=== PATIENT | male | born 1975 ===

== ENCOUNTER 2017-08-31 06:39 | Day surgery (SDC) | payer MEDICARE ==
[2017-08-28 13:32] VITALS: BMI 32.3
[2017-08-31 07:20] LABS: BASO # 0.01 K/mm3 (0.0-2.0); BASO % 0.1 % (0.0-3.0); EOS # 0.7 (0.0-0.7); EOS % 8.2 % (1.5-5.0); GRAN # 5.06 (1.4-6.5); GRAN % 61.4 % (50.0-68.0); HEMOGLOBIN 9.5 g/dL (14.0-18.0); LYMPH % 23.8 % (22.0-35.0); MEAN CORPUSCULAR HGB CONC 32.6 g/dl (31.0-37.0); MEAN PLATELET VOLUME 11.8 fl (7.0-11.0); MONO # 0.5 (0.1-0.6); MONO % 6.5 % (1.0-6.0); RBC 2.88 10^6/uL (3.5-6.1); RED CELL DISTRIBUTION WIDTH 14.9 % (11.5-14.5); WHITE BLOOD COUNT 8.3 10^3/ul (4.5-11.0)
[2017-08-31] MEDS ORDERED: Iohexol 350mgl/ml 50 ML ONE (07:30)
[2017-08-31] MEDS ORDERED: Lidocaine 2% Inj (20ml) ONE (07:30)
[2017-08-31 07:32] LABS: CALCIUM 8.6 mg/dL (8.4-10.5)
[2017-08-31 07:34] LABS: INR 0.89 (0.93-1.08); PROTHROMBIN TIME 10.2 SECONDS (9.4-12.5)
[2017-08-31] MEDS ORDERED: Iodixanol 320 MG/ML 200 ML BOTTLE IV ONE (07:42)
[2017-08-31] MEDS ORDERED: Midazolam 2 MG/2 ML VIAL ONE ×2 (07:54→08:13)
[2017-08-31] MEDS ORDERED: Sodium Chloride 0.9% 1,000 ML IV SCH (08:45)
[2017-08-31 09:14] VITALS: TEMP 97.7
[2017-08-31 10:07] VITALS: RESP 18
--- NOTE | 2017-08-31 11:08 | CARD ---
APPROVED REPORT Date of service: 08/31/2017 EKG Measurement Heart [id number] <Conclusion> Sinus rhythm with frequent premature ventricular complexes Nonspecific intraventricular conduction delay
[2017-08-31 11:48] VITALS: BP 101/83; PULSE 66; O2SAT 97
--- NOTE | 2017-08-31 11:58 | CARDCATH ---
PROCEDURE DATE: 08/31/2017 HISTORY: The patient is a 42-year-old male with a history of hypertension, hypercholesterolemia as well as end-stage renal disease due to polycystic kidney disease who presents with an abnormal stress test. Because of his ejection fraction of 48%, cardiac catheterization was recommended. PROCEDURE: Left heart catheterization with coronary arteriography and left ventriculogram. The right femoral artery was cannulated with a 6-Vietnamese sheath. There were no complications. I performed moderate sedation which included the presence of an independent trained observer that assisted in monitoring the patient's level of consciousness and physiologic status. After administration of Versed and fentanyl, my intra service time was 15 minutes. The findings on catheterization revealed a left ventricle that was mildly hypokinetic with an estimated ejection fraction of 45%-50%. There was no mitral regurgitation. His coronary anatomy revealed larger coronary vessels with a right dominant circulation. The RCA revealed diffuse atherosclerosis without critical lesions. The left main artery was within normal limits. The LAD and diagonal vessels revealed atherosclerosis without critical lesions. There was a 20%-30% stenoses in the midportion of the LAD. The circumflex artery was a large vessel without critical lesions. Angio-Seal was used to close the femoral artery site. The patient tolerated the procedure well. In summary, the procedure revealed mild LV hypokinesis consistent with a mild cardiomyopathy with an EF between 45%-50%. His coronary anatomy revealed diffuse atherosclerosis without critical lesions. Given these findings, there are no cardiac contraindications to his planned involvement in the renal transplant program. I have discussed with the patient's family about his need to control blood pressure and to continue a low fat diet with a cardiac risk reduction program. Sal Faulkner MD
--- NOTE | 2017-08-31 14:01 | CP.PCM.PN ---
Subjective - Date & Time of Evaluation Date of Evaluation: 08/31/17 Time of Evaluation: 14:00 - Subjective Subjective: pt seen and examined s/p cardiac cath today HD as MWF schedule Objective - Vital Signs/Intake and Output Vital Signs (last 24 hours): Temp Pulse Resp BP Pulse Ox 97.7 F 66 18 101/83 97 08/31/17 11:45 08/31/17 11:45 08/31/17 11:45 08/31/17 11:45 08/31/17 11:45 Intake and Output: 08/31/17 08/31/17 06:59 18:59 Intake Total 10 Balance 10 - Medications Medications: Current Medications Sodium Chloride (Sodium Chloride 0.9%) 1,000 mls @ 5 mls/hr IV .Q24H KIP - Labs Labs: 08/31/17 07:00 08/31/17 07:00 PT 10.2 SECONDS (9.4-12.5) 08/31/17 07:00 INR 0.89 (0.93-1.08) L 08/31/17 07:00 APTT 26.0 Seconds (25.1-36.5) 08/31/17 07:00
== END 2017-08-31 13:30 | disposition home or self-care (01) ==
LOC: CATH 06:39
PROVIDERS: ATTEND Internal Medicine Cardiovascular Disease
DX: I25.10 Atherosclerotic heart disease of native coronary artery without angina pectoris (principal); I12.0 Hypertensive chronic kidney disease with stage 5 chronic kidney disease or end stage renal disease; N18.6 End stage renal disease; E78.00 Pure hypercholesterolemia, unspecified; Q61.3 Polycystic kidney, unspecified; I42.0 Dilated cardiomyopathy
CPT/HCPCS: 36415; 80048; 80061; 85025; 85610; 85730; 86850; 86900; 93005; 93458; 99152; C1760; C1769; C2629; J2250; J3010; J7030; J7040; Q9966

== ENCOUNTER 2017-10-08 10:08 | Inpatient (IN) | payer MEDICARE, OTHER ==
[2017-10-08 10:15] VITALS: BMI 33.2
[2017-10-08 10:48] LABS: BASO # 0.02 K/mm3 (0.0-2.0); BASO % 0.1 % (0.0-3.0); EOS # 0.6 (0.0-0.7); EOS % 4.2 % (1.5-5.0); GRAN # 10.81 (1.4-6.5); GRAN % 77.5 % (50.0-68.0); HEMOGLOBIN 8.2 g/dL (14.0-18.0); LYMPH # 2.1 (1.2-3.4); LYMPH % 14.9 % (22.0-35.0); MEAN CELL VOLUME 103.7 fl (80.0-105.0); MEAN CORPUSCULAR HEMOGLOBIN 33.9 pg (25.0-35.0); MEAN CORPUSCULAR HGB CONC 32.7 g/dl (31.0-37.0); MEAN PLATELET VOLUME 11.9 fl (7.0-11.0); MONO # 0.5 (0.1-0.6); MONO % 3.3 % (1.0-6.0); RBC 2.42 10^6/uL (3.5-6.1); RED CELL DISTRIBUTION WIDTH 15.4 % (11.5-14.5)
--- NOTE | 2017-10-08 11:01 | ED PDOC ---
Arrival/HPI - General Chief Complaint: Shortness Of Breath Time Seen by Provider: 10/08/17 10:30 Historian: Patient, Spouse () - History of Present Illness Narrative History of Present Illness (Text): 10/08/17 10:26 A 42 year old male, whose past medical history includes hypertension (no longer takes medications for this), and currently on dialysis, who is accompanied by his and two sons, presents to the emergency department complaining of shortness of breath starting this morning. Patient reports yesterday was in normal state except felt fatigue, and last night went to bed at 22:00. Upon waking up, patient felt still felt some fatigue but no weakness. Later on while brushing his teeth, began experiencing shortness of breath and choking, pressure -like sensation to neck. He became concerned that he may be experiencing a heart attack, so he sat down and called 911. Upon EMS arrival, patient was given Nasal Cannula O2 and was relieved of symptoms. Patient denies any abdominal pain, chest pain, or any other complaints at this time. Also, patient mentions having experienced similar symptoms in the past after being disconnected from dialysis treatment, and states "a lot of fluids must have been taken out and caused to symptoms." PMD: Dr. Mendez Past Medical History - Provider Review Nursing Documentation Reviewed: Yes - Infectious Disease Hx of Infectious Diseases: None - Cardiac Hx Hypertension: Yes Hx Pacemaker: No - Pulmonary Hx Respiratory Disorders: No - Neurological Hx Paralysis: No - HEENT Hx HEENT Disorder: No - Renal Hx Dialysis: Yes Type of Dialysis Access: R FA AV shunt Date of Last Dialysis Treatment: 10/07/17 Hx Renal Failure: Yes (today) - Endocrine/Metabolic Hx Endocrine Disorders: No - Hematological/Oncological Hx Blood Transfusions: Yes (2014) Hx Blood Transfusion Reaction: No - Integumentary Hx Dermatological Disorder: No - Musculoskeletal/Rheumatological Hx Musculoskeletal Disorders: No - Gastrointestinal Hx Gastrointestinal Disorders: No - Genitourinary/Gynecological Hx Genitourinary Disorders: No - Psychiatric Hx Emotional Abuse: No Hx Physical Abuse: No Hx Substance Use: No - Surgical History Other/Comment: R FA AV shunt - Anesthesia Hx Anesthesia Reactions: No Hx Malignant Hyperthermia: No - Suicidal Assessment Feels Threatened In Home Enviroment: No Family/Social History - Physician Review Nursing Documentation Reviewed: Yes Family/Social History: No Known Family HX Smoking Status: Never Smoked Hx Alcohol Use: No Hx Substance Use: No Allergies/Home Meds Allergies/Adverse Reactions: Allergies No Known Allergies Allergy (Verified 10/08/17 12:59) Home Medications: Home Meds Medication Instructions Recorded Confirmed Rosuvastatin Calcium [Crestor] 5 mg PO HS 05/21/17 10/08/17 cloNIDine [Catapres] 0.1 mg PO TID 05/21/17 10/08/17 Aspirin [Ecotrin] 81 mg PO DAILY 08/28/17 10/08/17 Calcium Acetate [Phoslo] 3 tab PO ACTID 08/28/17 10/08/17 Cholecalciferol (Vitamin D3) 1 tab PO Q3XW 08/28/17 10/08/17 [D3-5000 90 mg-5000 Iu] Folic Acid 400 mg PO DAILY 08/28/17 10/08/17 Metoprolol Tartrate [Lopressor] 25 mg PO TID 08/28/17 10/08/17 tiZANidine [Zanaflex] 4 mg PO BID 08/28/17 10/08/17 Cinacalcet [Sensipar] 1 tab PO DAILY 10/08/17 10/08/17 Review of Systems - Physician Review All systems were reviewed & negative as marked: Yes - Review of Systems Respiratory: SOB (associated with choking, pressure-like sensation to neck.) Cardiovascular: absent: Chest Pain Gastrointestinal: absent: Abdominal Pain Physical Exam - Physical Exam Narrative Physical Exam (Text): Gen: VS reviewed, alert, well developed, well nourished, nontoxic, mild distress. ENT: normal pharynx. Eye: EOMI, PERRL. Neck: no JVD, supple, no adenopathy. CV: regular rate, regular rhythm, no rubs, no murmur, no gallops, S1, S2, pulses equal and strong. Pulm: no distress, clear to auscultation, no wheeze, no rhonchi, breath sounds equal, no rales. Abd: soft, nontender, no guarding, no rebound, no rigidity, normal bowel sounds. Ext: no edema. Skin: good color, no rash, no cyanosis, thrills to right arm dorsal aspect. Psych: responds appropriately to questions, normal affect. Neuro: oriented x 3, CN2-12 intact grossly, motor intact, sensation intact. Vital Signs Reviewed: Yes Vital Signs Temp Pulse Resp BP Pulse Ox 10/08/17 15:36 100.1 F H 111 H 18 129/72 10/08/17 15:20 97.5 F L 111 H 18 122/81 10/08/17 15:09 97.5 F L 103 H 18 122/81 98 10/08/17 14:47 98.4 F 78 18 145/91 H 95 10/08/17 13:33 101 H 18 125/86 100 10/08/17 10:22 97.6 F 97 H 18 121/59 L 98 10/08/17 10:20 18 99 Temperature: Afebrile Blood Pressure: Normal Pulse: Regular Respiratory Rate: Normal Appearance: Positive for: Well-Appearing Pain Distress: None Mental Status: Positive for: Alert and Oriented X 3 Medical Decision Making ED Course and Treatment: 10/08/17 10:30 Impression: 42 year old male shortness of breath. Physical exam shows thrills to right dorsal arm; no other acute findings on examination. Plan: -- EKG -- Chest X-ray -- Labs -- Reassess and disposition Progress Notes: 10/08/2017 10:21 EKG: Ordered, reviewed, and independently interpreted the EKG. Rate : 96 BPM Rhythm : NSR Interpretation : Normal QRS, normal access, no acute ST- and T- wave abnormalities. Comparison : No previous EKG for comparison. 10/08/2017 11:11 Chest X-ray IMPRESSION: No active disease. Dictator: Navin Gutiérrez MD 10/08/17 12:[address] mendez, patient to be admitted for symptomatic anemia, Hb reported to be near 10-[address] Mendez and patient. Patient also found to be hyperkalemic, received full dose of HD yesterday. Call has been placed to patient's derrick helper Dr. Barros. Patient also incidentally found to have an elevated WBC count, no s/s infection, it was agreed with Dr. Mendez to obtain cultures and empirically tx with iv abx. Patient remained stable throughtout ED course. 10/08/17 12:38 10/08/17 12:[address] bar nephro, covering with dr. wheeler, will arrange for HD and will arrange for c onsultation 10/08/17 15:40 blood transfusion initiated, 15 min into tranfusion, patient's temperature spiked to 100.2 oral, tylenol ordered, patient does not experience any other symptoms such as chest pain, dyspnea, dizziness, nausea, abd pain. patient looks and appears comfortable. - Lab Interpretations Lab Results: 10/08/17 10:30 10/08/17 10:30 Lab Results 10/08/17 10:30: Sodium 142, Potassium 6.1 H* D, Chloride 95 L, Carbon Dioxide 29 , Anion Gap 24 H, BUN 77 H, Creatinine 10.6 H* D, Est GFR ( Amer) 6, Est GFR (Non-Af Amer) 5, Random Glucose 133 H, Calcium 8.8, Phosphorus 3.1, Magnesium 2.5 H, Total Bilirubin 0.8, AST 14 L, ALT 10, Alkaline Phosphatase 62 , Troponin I < 0.01 D, Total Protein 7.1, Albumin 4.2, Globulin 2.9, Albumin/ Globulin Ratio 1.4 10/08/17 10:30: PT 12.2, INR 1.06, APTT 21.6 L, D-Dimer, Quantitative < 200 10/08/17 10:30: WBC 14.0 H D, RBC 2.42 L, Hgb 8.2 L, Hct 25.1 L, MCV 103.7, MCH 33.9, MCHC 32.7, RDW 15.4 H, Plt Count 214, MPV 11.9 H, Gran % 77.5 H, Lymph % ( Auto) 14.9 L, [place] % (Auto) 3.3, Eos % (Auto) 4.2, Baso % (Auto) 0.1, Gran # 10.81 H, Lymph # (Auto) 2.1, [place] # (Auto) 0.5, Eos # (Auto) 0.6, Baso # (Auto) 0.02 I have reviewed the lab results: Yes - RAD Interpretation Radiology Orders: 10/08/17 10:31 CXR [CHEST TWO VIEWS (PA/LAT)] [RAD] Stat - Medication Orders Current Medication Orders: Aspirin (Ecotrin) 81 mg PO DAILY KIP Atorvastatin Calcium (Lipitor) 10 mg PO HS KIP Calcium Acetate (Phoslo) 2,001 mg PO ACTID KIP Levalbuterol HCl (Xopenex) 0.63 mg IH [id number] [facility] Metoprolol Tartrate (Lopressor) 25 mg PO TID [facility] Pantoprazole Sodium (Protonix Ec Tab) 40 mg PO 0600,1600 [facility] Tizanidine HCl (Zanaflex) 4 mg PO BID [facility] Vitamin B Complex/Vit C/Folic Acid (Nephro-Vilma) 1 tab PO 0800 [facility] Discontinued Medications Darbepoetin Donny (Aranesp) 100 mcg IVP ONCE ONE Stop: 10/08/17 13:36 Dextrose (Dextrose 50% Inj) 50 ml IVP STAT STA Stop: 10/08/17 12:34 Last Admin: 10/08/17 13:09 Dose: 50 ml IVP Administration Document 10/08/17 13:09 GMD (Rec: 10/08/17 13:09 GMD [id number]) Charges for Administration # of IVP Administrations 1 Ceftriaxone Sodium (Rocephin 1 Gram Ivpb) 1 gm in 100 mls @ 100 mls/hr IVPB STAT STA PRN Reason: Protocol Stop: 10/08/17 13:31 Last Admin: 10/08/17 13:24 Dose: 100 mls/hr eMAR Start Stop Document 10/08/17 13:24 GMD (Rec: 10/08/17 13:25 GMD [id number]) Intravenous Solution Start Date 10/08/17 Start Time 13:24 End Date 10/08/17 End time 14:24 Total Infusion Time 60 Insulin Human Regular (Humulin R) 10 units IV STAT STA Stop: 10/08/17 12:34 Last Admin: 10/08/17 13:09 Dose: 10 unit eMAR Start Stop Document 10/08/17 13:09 GMD (Rec: 10/08/17 13:09 GMD [id number]) Intravenous Solution Start Date 10/08/17 Start Time 13:09 Non-Formulary Medication (Rosuvastatin Calcium [Crestor]) 5 mg PO HS [facility] Sodium Polystyrene Sulfonate (Kayexalate Susp) 15 gm PO STAT STA Stop: 10/08/17 12:33 Last Admin: 10/08/17 13:09 Dose: 15 gm Sodium Polystyrene Sulfonate (Kayexalate Susp) 15 gm PO STAT STA Stop: 10/08/17 13:10 Last Admin: 10/08/17 13:24 Dose: 15 gm - Scribe Statement The provider has reviewed the documentation as recorded by the Maryann Chandra Provider Scribe Attestation: All medical record entries made by the Trinaibdiane were at my direction and personally dictated by me. I have reviewed the chart and agree that the record accurately reflects my personal performance of the history, physical exam, medical decision making, and the department course for this patient. I have also personally directed, reviewed, and agree with the discharge instructions and disposition. Disposition/Present on Arrival - Present on Arrival Any Indicators Present on Arrival: No History of DVT/PE: No History of Uncontrolled Diabetes: No Urinary Catheter: No History of Decub. Ulcer: No History Surgical Site Infection Following: None - Disposition Have Diagnosis and Disposition been Completed?: Yes Diagnosis: Anemia, Hyperkalemia, Chronic renal failure Disposition: HOSPITALIZED Disposition Time: 12:38 Patient Plan: Admission Patient Problems: Current Active Problems Problem Status Onset Anemia Acute Hyperkalemia Acute Chronic renal failure Acute Condition: STABLE
[2017-10-08 11:07] LABS: ALBUMIN 4.2 g/dL (3.0-4.8); ALT/SGPT 10 U/L (7-56); AST/SGOT 14 U/L (17-59); BLOOD UREA NITROGEN 77 mg/dL (7-21); CALCIUM 8.8 mg/dL (8.4-10.5); GFR NON-AFRICAN AMERICAN 5
[2017-10-08 11:09] LABS: TROPONIN I < 0.01 ng/mL
--- NOTE | 2017-10-08 11:13 | RAD ---
Date of service: 10/08/2017 HISTORY: dyspnea COMPARISON: 02/14/2015 TECHNIQUE: Chest PA and lateral FINDINGS: LUNGS: No active pulmonary disease. PLEURA: No significant pleural effusion identified. No pneumothorax apparent. CARDIOVASCULAR: Normal. OSSEOUS STRUCTURES: No significant abnormalities. VISUALIZED UPPER ABDOMEN: Normal. OTHER FINDINGS: None. IMPRESSION: No active disease.
[2017-10-08 11:21] LABS: D DIMER < 200 ng/mlDDU (0-243); INR 1.06; PARTIAL THROMBOPLASTIN TIME 21.6 Seconds (25.1-36.5); PROTHROMBIN TIME 12.2 SECONDS (9.4-12.5)
[2017-10-08 11:57] LABS: ALB/GLOB RATIO 1.4 (1.1-1.8)
[2017-10-08] MEDS ORDERED: Sod Polystyrene Sulf 15 gm/60 ml Susp PO STA ×2 (12:32→13:09)
[2017-10-08] MEDS ORDERED: cefTRIAXone 1 gm 1 GM/100 ML BAG IVPB STA (12:32)
[2017-10-08] MEDS ORDERED: Insulin Regular 1 UNITS/0.01 ML ML IV STA (12:33)
[2017-10-08] MEDS ORDERED: Dextrose 50% SYRINGE Inj (50 ml) IVP STA ×2 (12:33→18:13)
[2017-10-08] MEDS ORDERED: Non Formulary Medication (Cholecalciferol (Vitamin D3) [Vitamin D3] 1 TAB) PO SCH (13:15)
[2017-10-08] MEDS ORDERED: Darbepoetin Alfa 100 mcg/ml Inj IVP ONE (13:35)
[2017-10-08] MEDS ORDERED: DiphenhydrAMINE 50 mg/ml Inj IVP STA (15:57)
[2017-10-08] MEDS: Levalbuterol 0.63 MG/3 ML Inhal Soln UD IH SCH ×2 (17:10→19:22)
[2017-10-08] MEDS: Pantoprazole 40 mg EC Tab PO SCH (17:10)
[2017-10-08] MEDS ORDERED: Pneumococcal 23-Valent Vaccine IM ONE (17:39)
[2017-10-08] MEDS ORDERED: Sodium Bicarbonate (8.4%) 50 Meq Syringe IVP ONE (18:13)
[2017-10-08] MEDS ORDERED: Insulin Regular 1 UNITS/0.01 ML ML IVP STA (18:13)
[2017-10-08] MEDS ORDERED: Albuterol 0.5% Inhal Sol (5 mg/ ml) 20 ml IH STA (18:14)
--- NOTE | 2017-10-08 19:08 | CARD ---
APPROVED REPORT Date of service: 10/08/2017 EKG Measurement Heart [id number] <Conclusion> Normal sinus rhythm Normal ECG
[2017-10-08 21:59] LABS: IRON 121 ug/dL (45-180)
[2017-10-08] MEDS ORDERED: Non Formulary Medication (Rosuvastatin Calcium [Crestor] 5 MG) PO SCH (22:00)
[2017-10-08 22:08] LABS: % IRON SATURATION 45 % (20-55); TOTAL IRON BINDING CAPACITY 267 ug/dL (261-462)
[2017-10-09] MEDS: Levalbuterol 0.63 MG/3 ML Inhal Soln UD IH SCH ×4 (01:06→20:34)
--- NOTE | 2017-10-09 03:23 | HP ---
Copied To: Andrea Rodriguez MD Attending MD: Andrea Rodriguez MD HISTORY OF PRESENT ILLNESS: The patient is a 42-year-old patient, came to the emergency room accompanied by the patient's family by [facility] complaining of sudden onset of shortness of breath at rest while the patient was brushing his teeth. When the EMS got to the patient, patient was given oxygen with relief of symptoms. REVIEW OF SYSTEMS: Patient's 13-system review was positive for sudden onset of shortness of breath at rest, also complained of fatigue and shortness of breath, and choking sensation.. The patient states that he was dialyzed yesterday. CODE STATUS: Full code. LIVING WILL ADVANCE DIRECTIVE: None. ALLERGIES: NONE. HEIGHT: 5 feet 6 inches. WEIGHT: 206. BODY MASS INDEX: 33. HOME MEDICATIONS: Vitamin D 50,000 units weekly, PhosLo 667 mg 3 tablets three times a day, Crestor 5 mg daily, Lopressor 25 mg three times a day, Sensipar 1 tablet daily, Zanaflex 4 mg twice a day, folic acid 1 mg daily, aspirin 81 mg daily. SOCIAL HISTORY: Denies substance abuse. Denies alcohol. Denies smoking. Denies drug use. Denies communicable disease. FAMILY HISTORY: Not applicable. PAST MEDICAL AND SURGICAL HISTORY: History end-stage renal disease, hemodialysis dependent 3 times a week via the upper extremity AV fistula, history of hypovitaminosis D, history of hyperlipidemia, history of bradycardia, history of nonobstructive coronary artery disease, history of decreased ejection fraction, history of anemia, history of secondary hyperparathyroidism, history of iron-deficiency, history of microscopic hematuria, history of polycystic kidney disease, history of abnormal stress test, history of nonischemic cardiomyopathy, history of questionable poor compliance, history of diverticulosis, history of left perinephric hematoma post renal biopsy, history of ultrasound-guided left renal biopsy, history of focal segmental glomerular sclerosis with moderate interstitial fibrosis, history of cardiac catheterization, history of left ventricular ejection fraction of 45% to 50% on cardiac catheterization, history of 20%-30% stenosis of the midportion of the left anterior descending artery, history of mild left ventricular hypokinesis with history of mild cardiomyopathy, history of pulmonary hypertension with right ventricular systolic pressure of 41 mmHg, history of mild tricuspid regurgitation, history of intraventricular conduction delay, history of hypertensive cardiovascular disease. Patient's past medical history is significant for history of uncontrolled hypertension, history of acute kidney injury, history of CT-guided left renal biopsy. Past medical history is significant for history of acute renal failure, history of packed red blood cell transfusion, history of nephrotic range proteinuria. PHYSICAL EXAMINATION: GENERAL: The patient seen in the emergency room in bed 2. The patient is seen lying in the bed, with patient's family at bedside. VITAL SIGNS: T-max is 98.1 to 98.8 to 99.1; heart rate 106, 112, 115; blood pressure 116/75, 121/74, 118/88; respiration 18, O2 sat 98% on room air. HEENT: Head normocephalic, atraumatic. HEENT examination shows pale conjunctivae. Anicteric sclerae. No oropharyngeal lesion. NECK: No rigidity. CHEST: Kyphosis. LUNGS: Shows positive occasional rhonchi in upper lung loyd. CARDIOVASCULAR: S1 and S2, regular rhythm. Questionable soft systolic murmur, left sternal border, right second intercostal space, left sternal border. ABDOMEN: Soft. Mild periumbilical and epigastric tenderness. No rebound tenderness. No hepatosplenomegaly. No costovertebral angle tenderness. GENITALIA: Male. RECTAL: Deferred. EXTREMITIES: Positive upper extremity AV fistula, positive thrill. Lower extremity shows no pitting edema, no calf numbness, no Homans' sign. NEUROLOGIC: The patient is alert, awake, oriented x3. Cranial nerves II through XII grossly intact. Gait examination is not tested. VASCULAR: Palpable pulses. PSYCHIATRIC: Negative. MUSCULOSKELETAL: Shows a body mass index of 33. DIAGNOSTICS: 10/08/2017, WBC 14, hemoglobin and hematocrit are 8.2 and 25.1. The patient's lab work in the office was reviewed. The patient's baseline hemoglobin is around high 10 and 11 g, platelet 214, granulocytes 76% segs. PT/PTT 12.2 and 21.6. D-dimer less than 200. Sodium 142, potassium 6.1, non hemolyzed, chloride 95, CO2 of 29, anion gap 24, BUN 77, creatinine 10.6, glucose 133, calcium 8.8, phosphorus 3.1, magnesium 2.5. LFTs are negative. EKG showed sinus rhythm, mild LVH. Chest x-ray shows clear lung loyd, no CHF noted. The patient was seen by the ER physician, Dr. IMPRESSION AND PLAN: 1. Sudden onset of shortness of breath, etiology undetermined. 2. Tachycardia. 3. Hypertension. 4. Acute drop in hemoglobin and hematocrit with symptomatic anemia with symptoms of shortness of breath. 5. Leukocytosis. 6. Granulocytosis. 7. Questionable systemic inflammatory response syndrome. 8. Non-hemolyzed hyperkalemia and end-stage renal disease, hemodialysis dependent. 9. Increased anion gap metabolic acidosis. 10. Hyperglycemia. 11. End-stage renal disease, hemodialysis dependent. 12. Acute onset of anemia, etiology undetermined. The patient was seen in the emergency room by the ER physician. The patient was treated for hyperkalemia with hyperkalemia treatment protocol. The patient was given Rocephin 1 g in the emergency room. The patient was given Aranesp 100 mcg. The patient was given regular insulin 10 units. The patient was given Kayexalate 30 g, and the patient is to be admitted to telemetry. At present, the patient will be admitted to telemetry with repeat labs. Nephrology, Cardiology and Gastroenterology consultation ordered. The patient has been ordered transfusion of PRBC. The patient was started on aspirin 81 mg daily. Patient was treated for hyperkalemia with Kayexalate, insulin, D50. Patient is started on Lipitor 10 mg daily, Lopressor 25 three times a day, Nephro-Vilma 1 tablet daily, PhosLo 2001 mg before meals three times a day, Protonix 40 mg p.o. daily.. The patient was started on Tylenol p.r.n. for fever, Xopenex nebulizer every 6 hours, Zanaflex 4 mg b.i.d. The patient is started on broad-spectrum IV antibiotics. The patient has been started on nebulizer treatment. The patient is ordered Tylenol for fever. The patient will be ordered GI and DVT prophylaxis. At present, the patient's condition, diagnosis, treatment plan, management plan, all discussed and explained to the patient and the patient's family, who was present at bedside, which they all acknowledged and understand. Patient will be ordered supplemental oxygen. The patient will be ordered out of bed. The patient will be ordered non-pharmacological DVT prophylaxis at present since the patient has sudden drop in hemoglobin of 2 to 3 g since the last offered blood work. The patient at present is awaiting for a bed. The patient has been ordered iron studies. B12, folate ordered. Stool occult blood ordered. At this time, the patient has been ordered all the diagnostic therapeutic intervention. The patient's further management will be dependent upon the patient's clinical condition, hemodynamic status and as per the patient response to therapeutic intervention, as per the patient's diagnostic test results and recommendation by all the physicians involved in the care of the patient. Dictated and electronically signed, not read. Andrea Rodriguez MD
[2017-10-09] MEDS: Pantoprazole 40 mg EC Tab PO SCH ×2 (05:34→16:50)
[2017-10-09 06:43] LABS: BASO # 0.02 K/mm3 (0.0-2.0); BASO % 0.2 % (0.0-3.0); EOS # 0.3 (0.0-0.7); EOS % 3.1 % (1.5-5.0); GRAN # 6.18 (1.4-6.5); GRAN % 67.2 % (50.0-68.0); HEMOGLOBIN 7.4 g/dL (14.0-18.0); LYMPH # 2.1 (1.2-3.4); LYMPH % 23.1 % (22.0-35.0); MEAN CELL VOLUME 98.2 fl (80.0-105.0); MEAN CORPUSCULAR HEMOGLOBIN 33.2 pg (25.0-35.0); MEAN CORPUSCULAR HGB CONC 33.8 g/dl (31.0-37.0); MEAN PLATELET VOLUME 12.1 fl (7.0-11.0); MONO # 0.6 (0.1-0.6); MONO % 6.4 % (1.0-6.0); RBC 2.23 10^6/uL (3.5-6.1); RED CELL DISTRIBUTION WIDTH 17.6 % (11.5-14.5); WHITE BLOOD COUNT 9.2 10^3/ul (4.5-11.0)
[2017-10-09 07:22] LABS: ALB/GLOB RATIO 1.4 (1.1-1.8); ALBUMIN 3.8 g/dL (3.0-4.8); BILIRUBIN,DIRECT 0.4 mg/dL (0.0-0.4); CALCIUM 8.8 mg/dL (8.4-10.5)
--- NOTE | 2017-10-09 10:18 | CON ---
Copied To: Sal Faulkner MD Attending MD: Sal Faulkner MD DATE: 10/09/2017 CARDIOLOGY CONSULTATION HISTORY: The patient is a 42-year-old male, who presents with shortness of breath. This patient's past medical history includes end-stage renal disease in which he has been treated with dialysis. The patient has documented cardiomyopathy with an EF of 45% with nonobstructive CAD documented by cardiac catheterization in 08/2017. In addition, the patient suffers from hypercholesterolemia and hypertension. He denies chest pain. SOCIAL HISTORY: The patient does not smoke. REVIEW OF SYSTEMS: Fourteen-point review of systems is reviewed in detail. Other than his shortness of breath, there are no other cardiac symptoms noted. No edema in the lower extremities. PHYSICAL EXAMINATION: VITAL SIGNS: Blood pressure is 148/95, heart rate is 100. NECK: Negative JVD. LUNGS: Without rales. HEART: Reveals S1, S2. EXTREMITIES: Without edema. LABORATORY DATA: His EKG is unremarkable. Hemoglobin is 7.4. Chemistries: BUN and creatinine are 96 and 13, potassium is 4. IMPRESSION: 1. Acute systolic congestive heart failure. 2. Mild cardiomyopathy. 3. End-stage renal disease. 4. Marked anemia. 5. Hypertension. 6. Hypercholesterolemia. PLAN: Given these findings, the patient is much improved after dialysis. I agree with possible packed red blood cells transfusion. There is no evidence for acute coronary syndrome. Sal Faulkner MD
--- NOTE | 2017-10-09 11:01 | CP.PCM.CON ---
History of Present Illness - History of Present Illness History of Present Illness: Nephrology Consultation Note: Assessment: Stable anemia of acute blood loss ? Upper GI bleed Hypertensive Chronic Kidney Disease (I12.0) End stage renal disease (N18.6) dependence on hemodialysis (Z99.2) (MWF) via AVF Anemia (D64.9), Hyperphosphatemia (E83.39), Secondary Hyperparathyroidism (E21.1 ), HTN (I12.0) hx of FSGS, obesity Plan: Will plan for HD today as ordered. Continue with Nephrovite 1 tab/day. PRBC as needed for anemia. on MICHAELLE with dialysis as last Hb 7.4. got aransep 100 mcg 10/08/17. check Ferritin as well. TSAT 45%. will add IV iron can hold phos binders pending GI work up last phos level 5.2 BP control with meds as ordered. Patient not on RAAS chasidy as with hyperkalemia Glycemic control, Dialysis consistent diet once stable from GI perspective Further work up/management as per primary team Dose meds/antibiotics (if needed) for ESRD status. Avoid fleets enema/magnesium based laxatives. GI, cardiology following continue with PPI Thanks for allowing me to participate in care of your patient. Will follow patient with you. Please call if any Qs. had d/w team Dr Rosendo Santoro Office: [phone] Chief Complaint; black stool HPI: Pt is a42 M with hx of ESRD on hemodialysis (MWF) via AVF , last dialysis Wed, chronic anemia, hyperphosphatemia, secondary hyperparathyroidism, hypertension , obesity presented with complaints of SOB and black stool for last 1 days. he was found to have hyperkalemia and acute on chronic anemia. admitted for further eval Renal consult requested for ESRD management. pt feels better today. today had normal color BM. denies blood in stool. makes urine. no SOB now HD since 2014, kidney biopsy showed FSGS and global sclerosis as well ROS: Cardiovascular: No chest pain. Pulmonary: No shortness of breath Gastrointestinal: denies abdominal pain No nausea. No vomiting. had black stool Genitourinary: No pain while urinating. Denies blood in urine. All other negative except as mentioned in HPI Physical Examination: seen on HD General Appearance: Comfortable, in no acute respiratory distress, co-operative . Vitals reviewed and noted as below Head; Atraumatic, normocephalic ENT: no ulcers no thrush. Tongue is midline. Oropharynx: no rash or ulcers. EYES: Pupils are equal, round and reactive to light accommodation. Eye muscles and extraocular movement intact. Sclera is anicteric. Neck; supple no lymphadenopathy, no thyromegaly or bruit Lungs: Normal respiratory rate/effort. Breath sounds bilateral equal and clear Heart: Increased rate. s1s2 normal. No rub or gallop. Extremities: no edema. No varicose veins Neurological: Patient is alert, awake and oriented to person, place and time. No focal deficit. Strength bilateral appropriate and equal Skin: Warm and dry. Normal turgor. No rash. Palpitation: Normal elasticity for age Abdomen: Abdomen is soft. Bowel sounds +. There is no abdominal tenderness, no guarding/rigidity or organomegaly Psych: normal insight and normal affect/mood MSK: no joint tenderness or swelling. Digits and nails normal, no deformity : kidney or bladder not palpable Access: AVF Labs/imaging reviewed. Past medical history, past surgical history, family history, social history, allergy reviewed and noted as below Family Hx: no hx of CKD. Non contributory Past Patient History - Infectious Disease Hx of Infectious Diseases: None - Past Social History Smoking Status: Never Smoked - CARDIAC Hx Cardiac Disorders: Yes (UNSTABLE ANGINA,CAD) Hx Congestive Heart Failure: Yes Hx Hypertension: Yes Hx Pacemaker: No - PULMONARY Hx Respiratory Disorders: No - NEUROLOGICAL Hx Neurological Disorder: No - HEENT Hx HEENT Problems: No - RENAL Hx Dialysis: Yes (MWF [facility]) Date of Last Dialysis Treatment: 10/07/17 Hx Renal Failure: Yes - ENDOCRINE/METABOLIC Hx Endocrine Disorders: No - HEMATOLOGICAL/ONCOLOGICAL Hx Blood Disorders: Yes Hx Anemia: Yes (BLOOD TRANSFUSION) - INTEGUMENTARY Hx Dermatological Problems: No - MUSCULOSKELETAL/RHEUMATOLOGICAL Hx Musculoskeletal Disorders: No Hx Falls: No - GASTROINTESTINAL Hx Gastrointestinal Disorders: Yes (BLACK STOOL 10-08-17) - GENITOURINARY/GYNECOLOGICAL Hx Genitourinary Disorders: No - PSYCHIATRIC Hx Emotional Abuse: No Hx Physical Abuse: No Hx Substance Use: No - SURGICAL HISTORY Hx Surgeries: Yes Other/Comment: R FA AV shunt - ANESTHESIA Hx Anesthesia Reactions: No Hx Malignant Hyperthermia: No Meds Allergies/Adverse Reactions: Allergies Allergy/AdvReac Type Severity Reaction Status Date / Time No Known Allergies Allergy Verified 10/08/17 12:59 - Medications Medications: Current Medications Acetaminophen (Tylenol 325mg Tab) 650 mg PO Q6 PRN PRN Reason: TEMP>=99.5F Acetaminophen (Tylenol 650 Mg Supp) 650 mg RC Q6H PRN PRN Reason: TEMP>=99.5F Acetaminophen (Tylenol 650 Mg Supp) 650 mg RC Q6H PRN PRN Reason: Headache Acetaminophen (Tylenol 325mg Tab) 650 mg PO Q6H PRN PRN Reason: Headache Acetaminophen (Tylenol 325mg Tab) 650 mg PO Q6H PRN PRN Reason: Pain, Mild (1-3) Atorvastatin Calcium (Lipitor) 10 mg PO HS [facility] Last Admin: 10/08/17 21:15 Dose: 10 mg Calcium Acetate (Phoslo) 2,001 mg PO ACTID [facility] Last Admin: 10/08/17 21:15 Dose: 2,001 mg Docusate Sodium (Colace) 100 mg PO TID [facility] Doxycycline Hyclate 100 mg/ (Sodium Chloride) 100 mls @ 100 mls/hr IVPB Q12 [facility] PRN Reason: Protocol Last Admin: 10/09/17 00:00 Dose: 100 mls/hr Ceftriaxone Sodium (Rocephin 1 Gram Ivpb) 1 gm in 100 mls @ 100 mls/hr IVPB DAILY [facility] PRN Reason: Protocol Levalbuterol HCl (Xopenex) 0.63 mg IH [id number] [facility] Last Admin: 10/09/17 07:09 Dose: 0.63 mg Metoprolol Tartrate (Lopressor) 25 mg PO TID [facility] Last Admin: 10/08/17 21:00 Dose: Not Given Ondansetron HCl (Zofran Inj) 4 mg IVP Q4H PRN PRN Reason: Nausea/Vomiting Pantoprazole Sodium (Protonix Ec Tab) 40 mg PO 0600,1600 [facility] Last Admin: 10/09/17 05:34 Dose: 40 mg Polyethylene Glycol (Miralax) 17 gm PO BID [facility] Tizanidine HCl (Zanaflex) 4 mg PO BID [facility] Last Admin: 10/08/17 21:15 Dose: 4 mg Vitamin B Complex/Vit C/Folic Acid (Nephro-Vilma) 1 tab PO 0800 [facility] Results - Vital Signs Recent Vital Signs: Last Vital Signs Temp 98.3 F 10/09/17 10:40 Pulse 73 10/09/17 10:40 Resp 18 10/09/17 10:40 BP 154/99 H 10/09/17 10:40 Pulse Ox 98 10/09/17 06:00 - Labs Result Diagrams: 10/09/17 05:30 10/09/17 05:30 Labs: Laboratory Results - last 24 hr 10/08/17 10/08/17 10/08/17 13:00 17:30 17:33 WBC RBC Hgb Hct MCV MCH MCHC RDW Plt Count MPV Gran % Lymph % (Auto) Lipscomb % (Auto) Eos % (Auto) Baso % (Auto) Gran # Lymph # (Auto) Lipscomb # (Auto) Eos # (Auto) Baso # (Auto) Sodium 142 Potassium 5.5 H Chloride 96 L Carbon Dioxide 27 Anion Gap 24 H BUN 84 H Creatinine 11.4 H* Est GFR ( Amer) 6 Est GFR (Non-Af Amer) 5 Random Glucose 105 Calcium 9.0 Phosphorus Magnesium Iron 121 TIBC 267 % Saturation 45 Total Bilirubin Direct Bilirubin AST ALT Alkaline Phosphatase Total Protein Albumin Globulin Albumin/Globulin Ratio Triglycerides Cholesterol LDL Cholesterol Direct HDL Cholesterol Blood Type B POSITIVE Antibody Screen Negative Crossmatch See Detail BBK History Checked Patient has bt 10/09/17 10/09/17 05:30 05:30 WBC 9.2 D RBC 2.23 L Hgb 7.4 L Hct 21.9 L MCV 98.2 D MCH 33.2 MCHC 33.8 RDW 17.6 H Plt Count 165 MPV 12.1 H Gran % 67.2 Lymph % (Auto) 23.1 Lipscomb % (Auto) 6.4 H Eos % (Auto) 3.1 Baso % (Auto) 0.2 Gran # 6.18 Lymph # (Auto) 2.1 Lipscomb # (Auto) 0.6 Eos # (Auto) 0.3 Baso # (Auto) 0.02 Sodium 143 Potassium 4.0 Chloride 94 L Carbon Dioxide 28 Anion Gap 25 H BUN 96 H Creatinine 13.0 H* Est GFR ( Amer) 5 Est GFR (Non-Af Amer) 4 Random Glucose 97 Calcium 8.8 Phosphorus 5.2 H Magnesium 2.4 H Iron TIBC % Saturation Total Bilirubin 0.5 Direct Bilirubin 0.4 AST 12 L ALT 16 Alkaline Phosphatase 59 Total Protein 6.4 Albumin 3.8 Globulin 2.6 Albumin/Globulin Ratio 1.4 Triglycerides 212 H Cholesterol 107 L LDL Cholesterol Direct 30 HDL Cholesterol 26 L Blood Type Antibody Screen Crossmatch BBK History Checked
[2017-10-09] MEDS: Multivitamin Vitamin B Complex (Nephro-Vite) Tab PO SCH (11:24)
[2017-10-09] MEDS: POLYETHYLENE GLYCOL 3350 17 GM/Dose PACKET PO SCH ×2 (11:24→17:15)
--- NOTE | 2017-10-09 11:25 | CON ---
Copied To: Mohit Tsang MD Attending MD: Mohit Tsang MD DATE: 10/09/2017 CONSULTATION IN GASTROENTEROLOGY REQUESTING PHYSICIAN: Andrea Rodriguez MD. REASON FOR CONSULT: I have been asked to see this 42-year-old male with a history of end-stage renal disease, on hemodialysis, who comes to the hospital with generalized weakness and sudden onset of shortness of breath. This happened on the day of admission to the hospital. The patient tells me that for 3 days, he has had dark black stools. He denies any abdominal pain, nausea, vomiting or rectal bleeding. He denies taking any nonsteroidals at home. He is on a baby aspirin. He does have a history of coronary artery disease and congestive heart failure as well as cardiomyopathy. He also has a history of chronic anemia. His hemoglobin in the past has been as low as 7.4 g. This was several years ago. He denies any chest pain or palpitations. On admission to the hospital, his hemoglobin was 8.2, this morning of 7.4. The patient received 1 unit of packed red blood cells and states that his breathing is improved. PAST MEDICAL HISTORY: As above. Again, the patient has a history of end-stage renal disease, on hemodialysis; coronary artery disease; cardiomyopathy; chronic anemia; perirenal hematoma; pulmonary hypertension. SOCIAL HISTORY: The patient denies cigarette smoking or alcohol use. FAMILY HISTORY: Noncontributory. REVIEW OF SYSTEMS: Fourteen-point review of systems is positive for dyspnea at rest, melena. PHYSICAL EXAMINATION: GENERAL: Well-developed male, seen in dialysis, in no acute distress. VITAL SIGNS: Reveal a temperature of 98.6, blood pressure 150/106, heart rate of 119. HEENT: Reveals sclerae to be white. Conjunctivae pale. NECK: Supple. CHEST: Lungs are clear. HEART: Reveals regular rate and rhythm. ABDOMEN: Soft, nontender. EXTREMITIES: Show no edema. LABORATORY DATA: Reveal this morning hemoglobin 7.4, white blood cell count 9.2. Chemistries reveal BUN of 96, creatinine of 13, phosphorus of 5.2, magnesium 2.4. AST, ALT are all normal. IMPRESSION: A 42-year-old male admitted to the hospital with shortness of breath and found to be anemic. He gives a history of melena for the last 3 days. I suspect that the patient has an upper GI bleed, most likely secondary to an ulcer. RECOMMENDATIONS : 1. Continue PPI. 2. Transfuse packed red blood cells to hematocrit of 30%. 3. I will schedule the patient for an upper endoscopy for early next week. Mohit Tsang MD
[2017-10-09] MEDS: cefTRIAXone 1 gm 1 GM/100 ML BAG IVPB SCH (13:04)
[2017-10-09 13:11] LABS: FOLATE 18.4 ng/mL
--- NOTE | 2017-10-09 19:13 | PN ---
Copied To: Andrae Rodriguez MD Attending MD: Andrea Rodriguez MD DATE: 10/09/2017 SUBJECTIVE: The patient is seen in room 261, bed 1. The patient is lying in the bed. The patient's and the son is bedside. The patient is alert, awake, responsive. The patient states that he is feeling better after receiving packed red blood cell transfusion. After detailed investigation with the patient and the patient's , the patient reports 4 to 5-day history of melena and also reports use of Advil, which he takes to sleep for the last few days to a week. This information the patient did not provide yesterday despite my questioning about any melena, black stools or hematemesis or hematochezia, but he did not mention that, but today he is mentioning it with the patient's present at the bedside. The patient's shortness of breath is resolved. PHYSICAL EXAMINATION: VITAL SIGNS: T-max 100.1 yesterday, down to 97.8; telemetry shows sinus rhythm, intermittent sinus tachycardia; blood pressure 133/90; respirations 17; O2 sat is 98-99%. HEENT: Head examination is normocephalic, atraumatic. HEENT examination shows pale conjunctivae. Anicteric sclerae. No oropharyngeal lesion. No neck rigidity. CHEST: Symmetrical. Questionable. No rales, crackles or wheezing. CARDIOVASCULAR: S1, S2. Regular rhythm. Questionable soft systolic murmur, left sternal border, right second intercostal space, left second intercostal space. ABDOMEN: Soft. Positive bowel sounds. No hepatosplenomegaly noted. No guarding. No rigidity. No rebound tenderness. GENITALIA: Male. RECTAL: Deferred. EXTREMITY: Shows positive right upper extremity AV fistula, positive thrill. Lower extremity shows no pitting edema, no calf tenderness, no Homans' sign. NEUROLOGICAL: The patient is alert, awake, oriented x3. Cranial nerves II through XII intact. Gait examination not tested. VASCULAR: Palpable pulses. NEURO: Without any gross deficit. PSYCHIATRIC: Not applicable. DIAGNOSTICS: On 10/09/2017, WBC 9.2, hemoglobin and hematocrit 7.4 and 22, platelet 165. Sodium 143, potassium is down to 4, chloride 94, CO2 of 28, anion gap 25, BUN 96, creatinine 13, phosphorus 5.2, magnesium 2.4. LFTs are normal. Triglyceride 212, cholesterol 107. Blood cultures, no growth. The patient received 3 units of PRBC. The patient was seen by Cardiology, Gastroenterology and Nephrology. Their recommendations noted and reinforced to the patient. IMPRESSION AND PLAN: 1. Melena. 2. Possible upper gastrointestinal bleeding with melena for the last 5 days. 3. History of nonsteroidal anti-inflammatory use. 4. Hypertension. 5. Tachycardia. 6. Leukocytosis with granulocytosis. 7. Normocytic anemia. 8. Status post packed red blood cell transfusion x3. 9. Non-hemolyzed hyperkalemia. 10. End-stage renal disease, hemodialysis dependent three times a week via the right upper extremity arteriovenous fistula. 11. Increased anion gap metabolic acidosis. 12. Hyperphosphatemia with secondary hyperparathyroidism. 13. Hypertriglyceridemia. 14. Status post packed red blood cell transfusion x3. 15. Mild dilated cardiomyopathy. 16. Acute blood loss anemia with upper gastrointestinal bleed and melena. 17. Hypertensive chronic kidney disease. 18. Secondary hyperparathyroidism. 19. History of focal segmental glomerular sclerosis. 20. Right upper extremity arteriovenous fistula. 21. Questionable systemic inflammatory response syndrome. Plan at this time, the patient has been ordered serial labs. The patient has been ordered, PTH, CBC. Current consultation: Nephrology, Cardiology, Gastroenterology. Current medications: The patient has been ordered Aranesp 100 mcg by the Nephrology. The patient has been ordered Aranesp and IV Venofer. The patient is on Colace 100 mg three times a day. The patient is on doxycycline 100 mg IV every 12. The patient is on Venofer 200 mg IV Thursday, Thursday and Thursday by Nephrology. The patient is on Lipitor 10 mg daily, Lopressor increased to 50 mg twice a day. The patient is on MiraLax 17 g twice a day, Nephro-Vilma 1 tablet daily, PhosLo 2001 mg three times a day, Protonix 40 mg twice a day, Rocephin 1 g IV daily, Tylenol p.o. suppository p.r.n., Xopenex nebulizer, Zanaflex 4 mg b.i.d., Zofran 4 mg IV every 4, incentive spirometry, oxygen 2 L, renal diet, out of bed to chair. Stool occult blood ordered. The patient updated about the patient's diagnoses, treatment plan, management plan. GI recommends upper endoscopy. Nephrology and Cardiology recommendations noted. If the patient stays stable and if the patient's hemoglobin and hematocrit stays stable without any further drop, the patient will be possibly considered for discharge very soon. The patient updated about his condition, diagnoses, treatment plan, management plan, etc. at length. All questions concerned answered. Dictated and electronically signed, not read. Andrea Rodriguez MD
[2017-10-09 22:15] VITALS: BP 118/80
[2017-10-10] MEDS: Levalbuterol 0.63 MG/3 ML Inhal Soln UD IH SCH ×2 (01:47→08:18)
[2017-10-10] MEDS: Pantoprazole 40 mg EC Tab PO SCH (05:48)
[2017-10-10 06:20] VITALS: RESP 18; TEMP 98.6; O2SAT 100
[2017-10-10 07:41] LABS: BASO # 0.02 K/mm3 (0.0-2.0); BASO % 0.2 % (0.0-3.0); EOS # 0.7 (0.0-0.7); EOS % 7.7 % (1.5-5.0); GRAN # 6.49 (1.4-6.5); GRAN % 67.1 % (50.0-68.0); HEMOGLOBIN 9.6 g/dL (14.0-18.0); LYMPH # 1.8 (1.2-3.4); LYMPH % 18.8 % (22.0-35.0); MEAN CORPUSCULAR HEMOGLOBIN 32.2 pg (25.0-35.0); MEAN CORPUSCULAR HGB CONC 33.2 g/dl (31.0-37.0); MEAN PLATELET VOLUME 12.2 fl (7.0-11.0); MONO # 0.6 (0.1-0.6); MONO % 6.2 % (1.0-6.0); RBC 2.98 10^6/uL (3.5-6.1); RED CELL DISTRIBUTION WIDTH 17.6 % (11.5-14.5); WHITE BLOOD COUNT 9.7 10^3/ul (4.5-11.0)
[2017-10-10 07:54] LABS: ALB/GLOB RATIO 1.5 (1.1-1.8); ALBUMIN 4.2 g/dL (3.0-4.8); BILIRUBIN,DIRECT 0.3 mg/dL (0.0-0.4); CALCIUM 9.5 mg/dL (8.4-10.5)
[2017-10-10] MEDS: Multivitamin Vitamin B Complex (Nephro-Vite) Tab PO SCH (08:13)
[2017-10-10] MEDS: POLYETHYLENE GLYCOL 3350 17 GM/Dose PACKET PO SCH (10:07)
[2017-10-10] MEDS: cefTRIAXone 1 gm 1 GM/100 ML BAG IVPB SCH (10:07)
[2017-10-10 11:30] VITALS: PULSE 108
--- NOTE | 2017-10-10 13:33 | PN ---
Copied To: Sal Faulkner MD Attending MD: Sal Faulkner MD DATE: 10/10/2017 SUBJECTIVE: The patient is in bed, comfortable. No shortness of breath. PHYSICAL EXAMINATION: VITAL SIGNS: Blood pressure is 118/80, the heart rates in the 60s. NECK: Negative JVD. LUNGS: Without rales. HEART: S1, S2. EXTREMITIES: Without edema. LABORATORY DATA: Hemoglobin is now up to 9.6. Chemistries, BUN and creatinine are noted. IMPRESSION: 1. End-stage renal disease. 2. Congestive heart failure. 3. Marked anemia, likely due to GI bleed from excessive non nonsteroidal anti-inflammatory intake. Given these findings, the patient's congestive heart failure symptoms are much improved. His hemoglobin is much improved. GI workup is pending. Sal Faulkner MD
--- NOTE | 2017-10-10 16:24 | CP.PCM.PN ---
Subjective - Date & Time of Evaluation Date of Evaluation: 10/10/17 Time of Evaluation: 10:00 - Subjective Subjective: Nephrology Consultation Note: Assessment: Stable anemia of acute blood loss ? Upper GI bleed Hypertensive Chronic Kidney Disease (I12.0) End stage renal disease (N18.6) dependence on hemodialysis (Z99.2) (MWF) via AVF Anemia (D64.9), Hyperphosphatemia (E83.39), Secondary Hyperparathyroidism (E21.1 ), HTN (I12.0) hx of FSGS, obesity Plan: Will plan for HD ,thursday as ordered. Continue with Nephrovite 1 tab/day. PRBC as needed for anemia. on MICHAELLE with dialysis as last Hb 7.4. got aransep 100 mcg 10/08/17. check Ferritin as well. TSAT 45%. will add IV iron. now Hb 9.6 can hold phos binders pending GI work up last phos level 5.2 BP control with meds as ordered. Patient not on RAAS chasidy as with hyperkalemia Glycemic control, Dialysis consistent diet once stable from GI perspective Further work up/management as per primary team Dose meds/antibiotics (if needed) for ESRD status. Avoid fleets enema/magnesium based laxatives. GI, cardiology following continue with PPI pt planned for outpt EGD and d/c home today. stable from renal perspective Thanks for allowing me to participate in care of your patient. Will follow patient with you. Please call if any Qs. had d/w team Dr Rosendo Santoro Office: [phone] Chief Complaint; black stool HPI: Pt is a42 M with hx of ESRD on hemodialysis (MWF) via AVF , last dialysis Wed, chronic anemia, hyperphosphatemia, secondary hyperparathyroidism, hypertension , obesity presented with complaints of SOB and black stool for last 1 days. he was found to have hyperkalemia and acute on chronic anemia. admitted for further eval Renal consult requested for ESRD management. pt feels better today. today had normal color BM. denies blood in stool. makes urine. no SOB now HD since 2014, kidney biopsy showed FSGS and global sclerosis as well ROS: Cardiovascular: No chest pain. Pulmonary: No shortness of breath Gastrointestinal: denies abdominal pain No nausea. No vomiting. had normal colored stool Genitourinary: No pain while urinating. Denies blood in urine. All other negative except as mentioned in HPI Physical Examination: General Appearance: Comfortable, in no acute respiratory distress, co-operative . Vitals reviewed and noted as below Head; Atraumatic, normocephalic ENT: no ulcers no thrush. Tongue is midline. Oropharynx: no rash or ulcers. EYES: Pupils are equal, round and reactive to light accommodation. Eye muscles and extraocular movement intact. Sclera is anicteric. Neck; supple no lymphadenopathy, no thyromegaly or bruit Lungs: Normal respiratory rate/effort. Breath sounds bilateral equal and clear Heart: Increased rate. s1s2 normal. No rub or gallop. Extremities: no edema. No varicose veins Neurological: Patient is alert, awake and oriented to person, place and time. No focal deficit. Strength bilateral appropriate and equal Skin: Warm and dry. Normal turgor. No rash. Palpitation: Normal elasticity for age Abdomen: Abdomen is soft. Bowel sounds +. There is no abdominal tenderness, no guarding/rigidity or organomegaly Psych: normal insight and normal affect/mood MSK: no joint tenderness or swelling. Digits and nails normal, no deformity : kidney or bladder not palpable Access: AVF Labs/imaging reviewed. Past medical history, past surgical history, family history, social history, allergy reviewed and noted as below Family Hx: no hx of CKD. Non contributory Objective - Vital Signs/Intake and Output Vital Signs (last 24 hours): Temp Pulse Resp BP Pulse Ox 98.6 F 108 H 18 118/80 100 10/10/17 06:00 10/10/17 10:00 10/10/17 06:00 10/10/17 00:01 10/10/17 06:00 Intake and Output: 10/10/17 10/10/17 06:59 18:59 Intake Total 240 Balance 240 - Labs Labs: 10/10/17 06:30 10/10/17 06:30 PT 12.2 SECONDS (9.4-12.5) 10/08/17 10:30 INR 1.06 10/08/17 10:30 APTT 21.6 Seconds (25.1-36.5) L 10/08/17 10:30
--- NOTE | 2017-10-11 22:52 | DS ---
Copied To: Andrea Rodriguez MD Attending MD: Andrea Rodriguez MD HISTORY OF PRESENT ILLNESS: The patient is seen in room 261 bed 1. The patient is comfortable. The patient denies any melena, denies any hematochezia. Denies any chest pain. Denies any shortness of breath. PHYSICAL EXAMINATION: VITAL SIGNS: T-max 98.6, pulse 62, 88; blood pressure 118/80, 144/98, 133/90, 132/93, 137/91; respiration 18, O2 sat 100%. HEENT: Head examination normocephalic, atraumatic. Shows pinkish pale conjunctivae. Anicteric sclerae. No oropharyngeal lesion. No neck rigidity. CHEST: Kyphosis. LUNGS: Shows no rales, crackles or wheezing. CARDIOVASCULAR: Examination S1, S2, regular rhythm. ABDOMEN: Soft. Positive bowel sounds. No hepatosplenomegaly noted. GENITALIA: Male. RECTAL: Deferred. EXTREMITY: Shows positive right upper extremity AV fistula, positive thrill. Lower extremity shows no pitting edema, no calf numbness, no Homans' sign. NEUROLOGIC: The patient is alert, awake, oriented x3. Cranial nerves II-XII grossly intact. VASCULAR: Examination palpable pulses. DIAGNOSTICS: On 10/10/2017, WBC 9.7, hemoglobin/hematocrit 9.6/29, platelets 165. Sodium 140, potassium 4.1, chloride 96, CO2 of 28, anion gap 20, BUN 47, creatinine 10.4, GFR 7, phosphorus 5.1, magnesium 2.2. LFTs are normal. Blood cultures no growth. The patient received 3 units of PRBC. FINAL IMPRESSION, PLAN AND DISCHARGE DIAGNOSES: 1. Probably upper gastrointestinal bleeding with melena and history of nonsteroidal anti-inflammatory drug use. 2. Hypertension. 3. Tachycardia. 4. Leukocytosis with granulocytosis. 5. Normocytic anemia. 6. Status post packed red blood cell transfusion x3. 7. Non-hemolyzed hyperkalemia. 8. End-stage renal disease, hemodialysis dependent three times a week via the right upper extremity arteriovenous fistula. 9. Increased anion gap metabolic acidosis. 10. Hyperphosphatemia with secondary hyperparathyroidism. 11. Hypertriglyceridemia. 12. Mild dilated cardiomyopathy. 13. Acute blood loss anemia. 14. Hypertensive chronic kidney disease. 15. History of focal segmental glomerulosclerosis. 16. Right upper extremity arteriovenous fistula. 17. Questionable systemic inflammatory response syndrome. 18. Questionable poor compliance. 19. Hyperlipidemia. Plan at this time the patient cleared by Gastroenterology for discharge. DISCHARGE MEDICATIONS: The patient is discharged home with following medications; 1. The patient is to hold the aspirin for at least 1 week. 2. PhosLo three tablets three times a day. 3. Sensipar 30 mg daily. 4. Folic acid 1 mg daily. 5. Lopressor 25 mg three times a day. 6. Protonix 40 mg twice a day. 7. Crestor 5 mg at bedtime. 8. Zanaflex 4 mg twice a day. 9. Nephro-Vilma 1 capsule daily. The patient is discharged home. The patient discharge medications as per updated ambulatory orders plus new script. The patient was advised to stop the use of all nonsteroidal anti-inflammatory drug use. The patient was advised to follow up with Dr. Rodriguez on 10/12/2017. The patient was advised to follow up with Dr. Tsang within 1 week to schedule EGD and colonoscopy. During this hospitalization, the patient was extensively explained about the details of his medical condition, diagnoses, treatment plan, management plan were extensively discussed on a daily basis. All questions and concerned answered. Time spent in the entire discharge process 45 minutes. Dictated and electronically signed, not read. Andrea Rodriguez MD
== END 2017-10-10 12:25 | disposition home or self-care (01) | DRG 377 ==
LOC: ED 10:08 → ERH 12:33 → 2RNO 19:08
PROVIDERS: ADMIT Internal Medicine; ATTEND Internal Medicine
PROC: 30233N1 Transfusion of Nonautologous Red Blood Cells into Peripheral Vein, Percutaneous Approach (ICD-10-PCS; 2017-10-08)
PROC: 5A1D70Z Performance of Urinary Filtration, Intermittent, Less than 6 Hours Per Day (ICD-10-PCS; principal; 2017-10-09)
DX: K92.1 Melena (principal); N18.6 End stage renal disease; I50.21 Acute systolic (congestive) heart failure; I13.2 Hypertensive heart and chronic kidney disease with heart failure and with stage 5 chronic kidney disease, or end stage renal disease; I42.0 Dilated cardiomyopathy; D62 Acute posthemorrhagic anemia; N25.81 Secondary hyperparathyroidism of renal origin; E87.2 Acidosis; Q61.3 Polycystic kidney, unspecified; I25.10 Atherosclerotic heart disease of native coronary artery without angina pectoris; I27.20 Pulmonary hypertension, unspecified; E87.5 Hyperkalemia; K92.0 Hematemesis; D72.829 Elevated white blood cell count, unspecified; E78.00 Pure hypercholesterolemia, unspecified; E78.1 Pure hyperglyceridemia; E78.5 Hyperlipidemia, unspecified; E83.39 Other disorders of phosphorus metabolism; N26.9 Renal sclerosis, unspecified; Z79.82 Long term (current) use of aspirin; Z79.899 Other long term (current) drug therapy; Z99.2 Dependence on renal dialysis

== ENCOUNTER 2018-03-18 12:43 | Outpatient (CLI) | payer MEDICARE | END 2018-03-18 12:44 | disposition home or self-care (01) | LOC: RAD 12:43 ==

== ENCOUNTER 2018-04-08 11:11 | Outpatient (CLI) | payer MEDICARE | END 2018-04-08 11:12 | disposition home or self-care (01) | LOC: RAD 11:11 | DX: M54.6 Pain in thoracic spine (principal); M54.5 Low back pain; M49.84 Spondylopathy in diseases classified elsewhere, thoracic region; M51.26 Other intervertebral disc displacement, lumbar region; M51.36 Other intervertebral disc degeneration, lumbar region ==

== ENCOUNTER 2018-04-15 06:05 | Day surgery (SDC) | payer MEDICARE ==
[2018-04-15] MEDS ORDERED: Lidocaine PF 2% (5 ml) Inj (For Cardiac Arrhy) ONE (08:59)
[2018-04-15] MEDS ORDERED: Propofol 10 mg/ml Inj (20 ML) ONE (08:59)
[2018-04-15] MEDS ORDERED: Benzocaine/Butamben/Tetracai 14-2-2% TOP Spray TOP ONE (09:24)
[2018-04-15] MEDS ORDERED: Sodium Chloride 0.9% 1,000 ML IV SCH (10:30)
[2018-04-15 11:20] VITALS: BP 125/61; PULSE 88; RESP 16; TEMP 98.3; O2SAT 99
== END 2018-04-15 11:50 | disposition home or self-care (01) ==
LOC: ENDO 06:05
PROVIDERS: ATTEND Specialist
DX: D50.9 Iron deficiency anemia, unspecified (principal); K57.30 Diverticulosis of large intestine without perforation or abscess without bleeding; K64.8 Other hemorrhoids; K44.9 Diaphragmatic hernia without obstruction or gangrene; K31.89 Other diseases of stomach and duodenum; N18.6 End stage renal disease; I25.10 Atherosclerotic heart disease of native coronary artery without angina pectoris; I50.9 Heart failure, unspecified; I42.9 Cardiomyopathy, unspecified; I27.20 Pulmonary hypertension, unspecified; K29.50 Unspecified chronic gastritis without bleeding
CPT/HCPCS: 43239; 45378; 88305; 88342; J2704; J3010; J7030; J7040